=== PATIENT | female | born 1950 | race Caucasian/White ===

== ENCOUNTER → 2018-10-09 13:04 | Outpatient (CLI) | payer MEDICARE, BC ==
[2016-03-25 17:41] VITALS: BMI 40.5
[~2018-10-09 13:04] MED LIST: ACCUPRIL40 MG PO; COREG25 MG PO; GLUCOPHAGE500 MG PO; HCTZ25 MG PO; HYDROCODONE-APA1 TAB PO; LIPITOR20 MG PO; NORVASC10 MG PO
== END | disposition home or self-care (01) ==
LOC: D.MRI 13:04
DX: M75.42 Impingement syndrome of left shoulder (principal)

== ENCOUNTER → 2018-11-02 07:50 | Day surgery (SDC) | payer MEDICARE, BC ==
[2018-10-31 11:24] LABS: HEMATOCRIT 40.5 % (36.0-48.0); HEMOGLOBIN 13.4 g/dL (12-16); MCH 31.8 pg (26.0-34.0); MCHC 33.1 g/dL (31.0-37.0); MEAN PLATELET VOLUME 10.3 fL (7.4-10.4); RBC 4.22 10x6/uL (4.00-5.40); RDW 13.8 % (11.5-14.5); WBC 6.9 10x3/uL (4.8-10.8)
[2018-10-31 11:37] LABS: INR 0.88 (0.85-1.17); PROTIME 11.4 SECONDS (11.6-15.0)
[2018-10-31 11:38] LABS: APTT 29.2 SECONDS (22.8-39.4)
[2018-10-31 11:42] LABS: ALBUMIN 3.6 g/dL (3.4-5.0); ALKALINE PHOSPHATASE 274 U/L (46-116); ALT (SGPT) 68 U/L (10-68); BILIRUBIN - TOTAL 0.42 mg/dL (0.2-1.3); CALC OSMOLALITY 283 mosm/kg (275-300); CALCIUM 8.6 mg/dL (8.5-10.1); CARBON DIOXIDE 32.4 mmol/L (21.0-32.0); CHLORIDE - SERUM 100 mmol/L (98-107); CREATININE - SERUM 0.7 mg/dL (0.6-1.3); GLUCOSE 139 mg/dL (74-106); POTASSIUM - SERUM 3.5 mmol/L (3.5-5.1); PROTEIN - SERUM 7.6 g/dL (6.4-8.2); SODIUM 141 mmol/L (136-145); UREA NITROGEN 16 mg/dL (7-18); eGFR NON AFRICAN AMERICAN 88 mL/min (90-120)
[~2018-11-02] VITALS: Ht 167.6 cm; Wt 113.4 kg
[~2018-11-02 07:50] MED LIST changes: +ASPIRIN EC81 M1 PO; +CENTRUM SILVER1 EAC3 PO; +NORCO 10-325 TA1 TAB PO; +ZETIA10 MG PO; +ZYRTEC10 MG PO
[2018-11-02 08:07] VITALS: BP 148/69; Ht 167.6 cm; Wt 113.4 kg
--- NOTE | 2018-11-19 10:37 | OP ---
PATIENT NAME: PAYTON WADE MEDICAL RECORD: [id number] :50 LOCATION:[facility] ADMISSION DATE: SURGEON: YOLY HINES MD DATE OF OPERATION: 11/02/2018 PREOPERATIVE DIAGNOSES: Rotator cuff tear of the left shoulder, biceps tendinitis of the left shoulder, impingement syndrome of the left shoulder, and acromioclavicular arthritis of the left shoulder. POSTOPERATIVE DIAGNOSES: Rotator cuff tear of the left shoulder, biceps tendinitis of the left shoulder, impingement syndrome of the left shoulder, and acromioclavicular arthritis of the left shoulder. PROCEDURES: 1. Arthroscopic rotator cuff repair of the left shoulder. 2. Arthroscopic biceps tenotomy of the left shoulder. 3. Arthroscopic distal clavicle excision done through separate incision under arthroscopy. 4. Arthroscopic subacromial decompression, acromioplasty, and bursectomy. SURGEON: Yoly Hines MD ANESTHESIA: General. INTRAOPERATIVE COMPLICATIONS: None. SUMMARY OF PATHOLOGIC FINDINGS: The patient was indeed found to have the above-mentioned pathology. OPERATIVE SUMMARY IN DETAIL: After obtaining the appropriate preoperative orthopedic surgery consent as well as anesthetic consultation, evaluation, and clearance, the patient was brought to the operating room and placed on the operating table in supine position. After adequate general laryngeal mask airway was administered, the patient was placed in right lateral decubitus position. All pressure points well padded to include down leg peroneal pad as well as axillary roll. The patient was held firmly to the operating table using the vacuum pack suction system. Left upper extremity and shoulder were then prepped and draped in routine sterile fashion. The arm was held in the [employer] traction boom at 30 degrees of forward flexion, 30 degrees of abduction, 10 pounds of traction laterally. Arthroscopy was established in the glenohumeral joint from posterior portal. Anterior portal was established in anterior safe interval. Diagnostic arthroscopy did reveal the above findings. Attention was first turned to the biceps tenotomy. Transrotator cuff portal was created through which the Ar[employer] tissue ablation system was utilized to detach the biceps tendon at the bicipital labral junction. Attention was then turned to the rotator cuff tear. Debridement was carried out of the articular aspect of the supraspinatus tendinous footprint. This was decorticated. Fibers of the rotator cuff were likewise taken down. Having completed this, attention was turned to the subacromial space. While on subacromial space, under direct arthroscopic visualization, the Ar[employer] ablation system was utilized to denude the undersurface of the acromion of all soft tissue elements and released the coracoacromial ligament. Next, acromioplasty was performed to the acromioclavicular joint. Having completed this, arthroscopy was established for an arthroscopic distal clavicle excision. OPERATIVE REPORT [id number] PAYTON WADE Using the anterior approach under direct arthroscopic visualization, the distal clavicle was excised for 1 cm. Having completed this, further decortication was carried out of the supraspinatus tendinous footprint. Having completed this, an inverted mattress suture was then placed through the rotator cuff tear. It was anchored laterally using a 5.5 SwiveLock from [employer]. Residual bursa was then taken down. Having completed that, arthroscopy portals were closed in routine interrupted fashion using 4-0 Prolene. Sterile dressings were applied. The patient was awakened and taken to recovery room in stable condition. All final needle and sponge counts were correct. TRANSINT:[id number] Voice Confirmation ID: [id number] DOCUMENT ID: [id number] FLORA DOBSON, YOLY GONZALEZ at 1037 CC: [id number] DICTATION DATE: 11/17/18 1229 COMMISSIONING ENGINEER: 11/17/18 1348 [facility] 11/02/18 [place] [id number] [place] [id number]
== END | disposition home or self-care (01) ==
LOC: D.OPS 07:50 → D.PAN 13:45
PROVIDERS: Anesthesiology
DX: M75.102 Unspecified rotator cuff tear or rupture of left shoulder, not specified as traumatic (principal); M75.22 Bicipital tendinitis, left shoulder; M75.42 Impingement syndrome of left shoulder; M13.812 Other specified arthritis, left shoulder; Z01.812 Encounter for preprocedural laboratory examination

== ENCOUNTER → 2019-06-08 17:23 | Outpatient (CLI) | payer MEDICARE, BC | END | disposition home or self-care (01) | LOC: D.US 17:00 | PROVIDERS: ATTEND Emergency Medicine | DX: M79.605 Pain in left leg (principal) ==